=== PATIENT | male | born 1975 | race Caucasian/White ===

== ENCOUNTER 2017-06-04 11:17 | Emergency (ER) | payer SELFPAY ==
[~2017-06-04] VITALS: Ht 182.9 cm; Wt 100.0 kg
[2017-06-04 11:20] VITALS: BP 147/88; PULSE 84; RESP 16; O2SAT 99
--- NOTE | 2017-06-04 11:27 | ED.REPORT ---
HPI-Rash / Abscess Date of Service Jun 04, 2017 ED Provider: History of Present Illness: seen a month ago at [facility] for bumps after camping, took the antibiotic the whole course, still continues with sore on left lower ankle. has not been covering. last night soaked in espom salt. no primary care. States the wound has improved since it first started. Nursing Notes Stated Complaint: LEFT FOOT PAIN/INFECTION Chief Complaint: Skin Rash/Abscess Nursing Notes Reviewed: Yes Allergies: Coded Allergies: No Known Allergies (Unverified , 08/05/16) General Time Seen by MD: 11:26 Chief Complaint Sore Hx Obtained From: Patient Onset Occurred: More than a week ago... (4 weeks) Symptom Duration: Since onset Past Medical History Past Medical History None reported Past Surgical History L elbow repair Smoking History Never Smoker Social History Alcohol Use: Denies alcohol use Drug Use: Denies drug use Other Social History: Occupation work at [employer] 06/04/17 Review of Systems Basic Review of Systems : No dysuria, No frequency Psychiatric: Normal thought content Physical Exam Initial Vital Signs Vital Signs (First) Date Time Temp Pulse Resp B/P Pulse Ox O2 Delivery O2 Flow Rate FiO2 06/04/17 11:20 36.5 84 16 147/88 99 Room Air Initial VS: Reviewed, Vital signs normal Head / Eyes: Atraumatic, Normocephalic, PERRL ENT: Mucous membranes moist, Conjunctiva normal, No scleral icterus Neck: Supple, Non-tender, Full range of motion Respiratory: Breath sounds normal, Clear to auscultation, No respiratory distress Cardiovascular: Regular rate & rhythm, Heart sounds normal, Intact distal pulses Abdomen / GI: Soft, Non-tender, No guarding, No rebound, No distention Back: No CVA tenderness Lymphatic: No lymphadenopathy Extremities: Vascular intact, Neuro intact, No swelling, No tenderness Neurologic: Alert, Oriented, Nonfocal Psychiatric: Mood/affect normal, Behavior normal, Normal thought content General/Constitutional: Awake, Alert, No acute distress, Well appearing, Well developed, Well hydrated, Well nourished, Cooperative, Not toxic appearing Rash / Lesion Notes: wound on left medial aspect of lower leg. No active bleeding. No sign of infection. Irregular edges ENT: Atraumatic, Airway patent, Mucous membranes moist Respiratory / Chest: Atraumatic, Breath sounds NL, Breath sounds = bilat, No respiratory distress Cardiovascular: Heart rate NL, Regular rhythm, Heart sounds NL, No gallop Re-Eval/Medical Decision Med Decision/Clinical Course 42 year old male presents to the ER for evualation of leg wound that is improving but is still not healed. No sign of infection. No sign of anthrax Discharge & Departure Impression: Primary Impression: Chronic wound of extremity Disposition: Home Patient Instructions: Chronic Wound Care (ED) Additional Instructions: The site does not show any sign of infection. Use the bactroban to the site 2 to 3 times a day. Use the support hose daily. Apply the bactroban and then a non stick dressing and then cover with the support hose. Change the support hose when you get home from work. When you go to bed, you do not need to wear the support hose but cover with a non stick gauze and then paper tape. Wash the 2 sites on your arm and apply the bactroban also. Should see improvement in 2 weeks. This may take a month to heal completely. Establish in primary care with [facility]. [facility] Provider for APC: Marcello Urias MD copies to: [facility] Pamela Paulson Jun 04, 2017 11:27
[2017-06-04] MEDS ORDERED: Mupirocin 2% 22 Gm Ointment TOPICAL ONE (11:45)
[2017-06-04 12:47] VITALS: BP 124/76; PULSE 79; RESP 14; O2SAT 98
== END 2017-06-04 12:40 | disposition home or self-care (01) ==
LOC: SED 11:17
DX: S91.002A Unspecified open wound, left ankle, initial encounter (principal); X58.XXXA Exposure to other specified factors, initial encounter; Y93.89 Activity, other specified; Y92.833 Campsite as the place of occurrence of the external cause; Y99.8 Other external cause status

== ENCOUNTER 2017-07-17 09:59 | Emergency (ER) | payer SELFPAY ==
[~2017-07-17] VITALS: Ht 182.9 cm; Wt 100.0 kg
[2017-07-17 10:02] VITALS: BP 134/78; PULSE 85; RESP 18; O2SAT 98
--- NOTE | 2017-07-17 10:13 | ED.REPORT ---
HPI-Extremity Problem Lower Date of Service Jul 17, 2017 ED Provider: Ruiz Arguello MD Patient is a 42 year old male who presents to the ED complaining of right ankle pain s/p scraping it onset a few days. He has noticed some mild pus drainage while walking on his ankle. Additional symptoms include increasing itching, swelling, and redness to his right ankle. He denies fever, nausea, vomiting, chest pain, or SOB. He was seen in the ED a month ago for a spider bite on his left ankle, but denies having recurrent cellulitis before. Nursing Notes Stated Complaint: RIGHT ANKLE PAIN Chief Complaint: Extremity Trauma Nursing Notes Reviewed: Yes Allergies: Coded Allergies: No Known Allergies (Unverified , 07/17/17) Scheduled Sulfamethoxazole/Trimeth 800-160 mg (Bactrim DS) 1 Each Tablet 1 TABLET PO BID General Time Seen by MD: 10:09 Chief Complaint Ankle injury right Hx Obtained From: Patient Arrived By: Walk-in Onset Occurred: 3 days ago Symptom Duration: Constant Location: : Ankle right Quality: Painful Severity: Current: Mild Severity: Maximum: Moderate Recent Healthcare: Recent doctor visit Similar Sx Previous: No Past Medical History Past Medical History None reported Denies: Diabetes mellitus Past Surgical History L elbow repair Smoking History Never Smoker Social History Alcohol Use: Denies alcohol use Drug Use: Denies drug use Other Social History: Occupation work at [employer] 06/04/17 Ambulatory Status Independent Review of Systems Review of Systems Note: Redness to right ankle Mild pus drainage from right ankle while walking Constitutional: Denies: Fever Musculoskeletal: Reports: Extremity pain (right ankle), Extremity swelling ( right ankle) Skin: Reports Itching (on right ankle), Reports Swelling (on right ankle) Complete sys rev & neg: except as marked. Respiratory: Denies: Shortness of breath Cardiovascular: Denies: Chest pain GI: Denies: Nausea, Vomiting Physical Exam Initial Vital Signs Vital Signs (First) Date Time Temp Pulse Resp B/P Pulse Ox O2 Delivery O2 Flow Rate FiO2 07/17/17 10:02 37.3 85 18 134/78 98 Room Air Initial VS: Reviewed Head / Eyes: Atraumatic, Normocephalic Neck: Supple, Full range of motion Respiratory: No respiratory distress Upper Extremities: Vascular intact, Neuro intact, No swelling, No tenderness Skin: Warm, Dry, No cyanosis Neurologic: Alert, Oriented, Nonfocal Psychiatric: Mood/affect normal, Behavior normal, Normal thought content Lower Extremity / Pelvis / MS: Full range of motion, Neurologic intact, Vascular intact Chronic wound on left lower calf, no fluctuance or discharge Ankle / Foot: Full range of motion, Neurologic intact, Vascular intact 1 cm ulcer on right lateral ankle with several centimeters of surrounding erythema Full range of motion of right ankle with no tenderness General/Constitutional: Awake, Alert Interpretation & Diagnostics ULTRASOUND OF RIGHT LEG: No evidence of DVT. Lab Results Interpretation Result Diagram: 07/17/17 1020 07/17/17 1020 Test 07/17/17 10:20 White Blood Count 7.8th/mm3 (3.8-10.1) Red Blood Count 5.07mil/mm3 (4.40-5.80) Hemoglobin 13.8g/dL (13.8-17.2) Hematocrit 40.6% (41.0-50.0) Mean Corpuscular Volume 80.1fL (81-100) Mean Corpuscular Hemoglobin 27.2pg (27.0-35.0) Mean Corpuscular Hemoglobin Concent 34.0% (32.0-37.0) Red Cell Distribution Width 13.8% (12.3-15.4) Platelet Count 407bil/L (150-400) Neutrophils (%) (Auto) 64.9% (40-74) Lymphocytes (%) (Auto) 23.4% (14-46) Monocytes (%) (Auto) 10.5% (4-12) Eosinophils (%) (Auto) 0.6% (0-5) Basophils (%) (Auto) 0.3% (0-3) Sodium Level 134mEq/L (134-144) Potassium Level 3.7mEq/L (3.5-5.2) Chloride Level 97mEq/L (97-108) Carbon Dioxide Level 25mmol/L (18-29) Blood Urea Nitrogen 7mg/dL (6-24) Creatinine 0.80mg/dL (0.76-1.27) Estimat Glomerular Filtration Rate 113mL/min (>59) Glucose Level 116mg/dL (60-99) Lactic Acid Level 1.4mmol/L (0.4-2.0) Calcium Level 9.1mg/dL (8.5-10.1) Total Bilirubin 0.6mg/dL (0.0-1.2) Aspartate Amino Transf (AST/SGOT) 12U/L (0-50) Alanine Aminotransferase (ALT/SGPT) 26U/L (0-44) Alkaline Phosphatase 64U/L (25-150) Total Protein 8.4g/dL (6.4-8.4) Albumin 4.3g/dL (3.4-5.0) X-Ray Interpretation Xray Interpretation: Right Ankle X-Ray: IMPRESSION: 1. No radiographic evidence of osteomyelitis. If clinical concern persists, recommend further evaluation with MRI. Dictated by: Babar Mccurdy M.D. on 07/17/2017 at 12:38 Approved by: Babar Mccurdy M.D. on 07/17/2017 at 12:40 X-Ray Ordered: Ankle right Interpretation / Wet Read by: Interpret - Radiologist Re-Eval/Medical Decision Med Decision/Clinical Course 42-year-old male with no known past medical history presenting with right ankle cellulitis and ulcer times several days. He has a right lateral ankle ulcer with surrounding erythema. I marked this. Ultrasound was performed with no evidence of abscess or DVT. White blood cell count is normal. Lactate is normal. Afebrile. Patient was given 1 dose of IV clindamycin. I discussed with the patient I do not believe he needs to be admitted at this time given normal white blood cell count, normal vital signs, no evidence of abscess very focal cellulitis. He agrees with plan to discharge home with oral antibiotics. We will discharged on Bactrim. He will follow up with wound care tomorrow. He is counseled extensively to return immediately if he has any systemic signs of infection or if the redness extends beyond the line or any signs of streaking lymphangitis or new worsening symptoms. Patient is agreeable with this plan. Source of Hx: Old records Re-Evaluation/Progress : Time of Eval: 12:58 Patient Status: Condition improved Re-Evaluation/Progress Note: Patient rechecked. Discussed plan for discharge. Pt agrees and understands plan. Gave all RTER and follow-up directions. All questions addresssed at this time. Counseled Regarding: Diagnosis, Lab results, Need for follow-up, When/why to return to ED Discharge & Departure Impression: Primary Impression: Cellulitis of right leg Additional Impression: Ulcer of right leg Non-pressure ulcer stage: unspecified non-pressure ulcer stage Qualified Code : L97.919 - Non-pressure chronic ulcer of unspecified part of right lower leg with unspecified severity Disposition: Home Discharge Condition All VS Reviewed: Yes Condition: Stable Additional Instructions: Thank you for entrusting us with your care today. Your labs, examination, and imaging results were all reassuring. There is no apparent dangerous cause for your symptoms at this time. Start the Bactrim as prescribed. Please call today to schedule a follow-up appointment with your primary care doctor in 2-3 days for a recheck. Also, follow-up with the wound care center today for a recheck of your leg. Please return to the emergency department if you are having any new or worsening symptoms, such as fever, chills, nausea, increasing leg pain, discharge, or numbness/tingling. [facility] [place] Address: [address] [place] [id number] Referrals: [facility] Scribe Attestation Portions of this note were transcribed by Maritza Hendrix. I, Dr. Arguello personally performed the history, physical exam and medical decision-making; I reviewed and confirmed the accuracy of the information in the transcribed note. . copies to: [facility] Ruiz Arguello MD Jul 17, 2017 10:13 Maritza Hendrix Jul 17, 2017 10:35
[2017-07-17] MEDS ORDERED: Clindamycin Inj 900 MG in IV Premix 1 EACH IV ONE (10:40)
[2017-07-17 10:52] LABS: BASOPHILS % (AUTO) 0.3 % (0-3); EOSINOPHILS % (AUTO) 0.6 % (0-5); MONOCYTES % (AUTO) 10.5 % (4-12); Mean Corpuscular Hemoglobin 27.2 pg (27.0-35.0); Mean Corpuscular Volume 80.1 fL (81-100); NEUTROPHILS % (AUTO) 64.9 % (40-74); Platelet Count 407 bil/L (150-400)
--- NOTE | 2017-07-17 12:42 | DRSVH ---
PROCEDURE: X-RAY RIGHT ANKLE, MINIMUM THREE VIEWS ([id number]) INDICATIONS: r/o osteomyelitis TECHNIQUE: 3 views of the ankle were acquired. COMPARISON: None. FINDINGS: Bones: No fractures or dislocations. Ankle mortise is normally aligned. No discrete bony erosions or periosteal reaction. Soft tissues: There is soft tissue swelling over the lateral malleolus with a superficial soft tissue ulcer noted. No tibiotalar joint effusion. Achilles tendon appears normal. IMPRESSION: 1. No radiographic evidence of osteomyelitis. If clinical concern persists, recommend further evalu ation with MRI. Dictated by: Babar Mccurdy M.D. on 07/17/2017 at 12:38 Approved by: Babar Mccurdy M.D. on 07/17/2017 at 12:40
[2017-07-17] MEDS ORDERED: SULF1TAB7 PO (12:55)
[2017-07-17] MEDS ORDERED: Bacitracin Ointment Packet TOPICAL ONE (13:15)
[2017-07-17 13:17] VITALS: BP 139/76; PULSE 85; RESP 16; O2SAT 99
--- NOTE | 2017-07-17 17:04 | DRSVH ---
PROCEDURE: US VEINOUS LEG DUPLEX UNILATERAL, RIGHT INDICATIONS: RLE US r/o abscess and dvt TECHNIQUE: Real-time imaging, as well as color and pulse Doppler interrogation, were performed of the lower extr emity deep veins from the inguinal ligament to the popliteal fossa. COMPARISON: None. FINDINGS: The deep veins are normally compressible, and free of intraluminal thrombus. Color and pu lse Doppler demonstrate normal phasic intraluminal flow. There is normal augmentation response to di stal compression maneuver. IMPRESSION: No deep venous thrombosis identified within the right lower extremity. Dictated by: Rey CHAPIN Interpreted: Tory Brooks MD on 07/17/2017 at 11:18 Approved by: Tory Brooks M.D. on 07/17/2017 at 17:02
== END 2017-07-17 13:19 | disposition home or self-care (01) ==
LOC: SED 09:59
DX: L03.115 Cellulitis of right lower limb (principal); L97.919 Non-pressure chronic ulcer of unspecified part of right lower leg with unspecified severity; W26.9XXA Contact with unspecified sharp object(s), initial encounter; Y93.9 Activity, unspecified; Y92.9 Unspecified place or not applicable; Y99.9 Unspecified external cause status
CPT/HCPCS: 36415; 73610; 80053; 83036; 83605; 85025; 87040; 93971; 96365; 99285; J3490